=== PATIENT | female | born 1980 | race Caucasian/White ===

== ENCOUNTER 2016-07-12 15:05 | Observation (INO) | payer BC | END 2016-07-12 16:40 | disposition home or self-care (01) | LOC: SPU 15:05 | PROVIDERS: ADMIT Specialist; ATTEND Specialist | DX: O62.9 Abnormality of forces of labor, unspecified (principal); Z3A.36 36 weeks gestation of pregnancy | CPT/HCPCS: 81002; G0378 ==

== ENCOUNTER 2016-07-29 11:06 | Inpatient (IN) | payer BC ==
[~2016-07-29] VITALS: Ht 157.5 cm; Wt 72.6 kg
[2016-07-29] MEDS ORDERED: LR 1,000 ML IV SCH ×2 (11:47→16:33)
[2016-07-29] MEDS ORDERED: CEFAZOLIN 2 GM IVPB PREMIX 50 ML IV ONE ×2 (12:00→13:30)
[2016-07-29 12:14] LABS: BASOPHILS % (AUTO) 0.1 % (0.0-2.0); EOSINOPHILS # (AUTO) 0.1 K/uL (0.0-0.4); EOSINOPHILS % (AUTO) 0.8 % (0.0-4.0); HEMATOCRIT 39.7 % (36-48); HEMOGLOBIN 13.5 g/dL (12.0-16.0); LYMPHOCYTES # (AUTO) 1.3 K/uL (1.0-5.5); LYMPHOCYTES % (AUTO) 13.2 % (20.5-51.5); MEAN CORPUSCULAR HEMOGLOBIN 32 pg (27-31); MEAN CORPUSCULAR HGB CONC 34 % (32-36); MEAN CORPUSCULAR VOLUME 94 fL (79.0-98.0); MONOCYTES # (AUTO) 0.5 K/uL (0.0-1.0); MONOCYTES % (AUTO) 5.6 % (1.7-9.3); NEUTROPHILS # (AUTO) 7.7 K/uL (1.8-7.7); NEUTROPHILS % (AUTO) 80.3 % (40.0-70.0); PLATELET COUNT (AUTO) 195 K/uL (130-430); RED BLOOD CELL COUNT(AUTO) 4.23 MIL/uL (4.2-6.2); RED CELL DISTRIBUTION WIDTH 12.9 % (9.0-15.0); WHITE BLOOD COUNT (AUTO) 9.6 K/uL (4.8-10.8)
[2016-07-29 12:53] LABS: CLARITY/URINE SL HAZY (CLEAR); COLOR,URINE YELLOW (YELLOW); GLUCOSE,URINE NEGATIVE (NEGATIVE); PH,URINE 6.5 (5.0-8.0); PROTEIN URINE NEGATIVE (NEGATIVE)
[2016-07-29 12:54] LABS: BILIRUBIN,URINE NEGATIVE (NEGATIVE); BLOOD, URINE NEGATIVE (NEGATIVE); KETONES,URINE 2+ (NEGATIVE); LEUKOCYTE ESTERASE ,URINE 1+ (NEGATIVE); NITRITE, URINE NEGATIVE (NEGATIVE); UROBILINOGEN,URINE 0.2 (0.2-1.0)
[2016-07-29 13:01] LABS: BACTERIA,URINE FEW /HPF (None Seen); MUCUS,URINE None Seen /LPF (None Seen); RBC,URINE 0-3 /HPF (0-3)
[2016-07-29] MEDS ORDERED: BUPIVACAINE /PF 0.75% 10 ML VIAL INJ ONE (13:30)
[2016-07-29] MEDS ORDERED: OXYTOCIN 10 UNIT/ML VIAL IV ONE (13:30)
[2016-07-29] MEDS ORDERED: MORPHINE SULFATE 10MG/10ML PF AMP EP ONE (13:30)
[2016-07-29] MEDS ORDERED: NS IRRIG SOLN 1000 ML IR ONE (13:30)
[2016-07-29] MEDS ORDERED: ONDANSETRON HCL 4 MG/2 ML VIAL IVP ONE (13:30)
[2016-07-29] MEDS ORDERED: LR 1,000 ML IV.SOLN IV ONE (13:30)
[2016-07-29] MEDS ORDERED: MIDAZOLAM HCL 5 MG/5 ML VIAL IVP ONE (13:30)
[2016-07-29] MEDS ORDERED: HYDROmorphone 2 MG/ML VIAL IVP ONE (13:30)
[2016-07-29 15:10] VITALS: BP 106/69
[2016-07-29] MEDS ORDERED: OXYTOCIN/NORMAL SALINE 1,000 ML IV ONE ×2 (15:23→16:33)
[2016-07-29] MEDS ORDERED: OXYCODONE/ACETAMINOPHEN 5-325 TABLET PO PRN (16:45)
[2016-07-29] MEDS ORDERED: ANUSOL 1 EA SUPP.RECT (PREPARATION H) RC PRN (16:45)
[2016-07-29] MEDS ORDERED: DIPHENHYDRAMINE INJ 50 MG/ML VIAL IM PRN (16:45)
[2016-07-29] MEDS ORDERED: BISACODYL 10 MG/SUPPOSITORY RC PRN (16:45)
[2016-07-29] MEDS ORDERED: ACETAMINOPHEN 325 MG TABLET PO PRN (16:45)
[2016-07-29] MEDS ORDERED: LANOLIN 7 GM OINT. TP PRN (16:45)
[2016-07-29] MEDS ORDERED: DIPHENHYDRAMINE INJ 50 MG/ML VIAL IVP PRN (16:45)
[2016-07-29] MEDS: KETOROLAC TROMETHAMINE 30 MG VIAL IVP PRN (18:25)
[2016-07-29] MEDS: CEFAZOLIN 1 GM IVPB PREMIX 50 ML IV SCH (21:03)
[2016-07-30] MEDS: CEFAZOLIN 1 GM IVPB PREMIX 50 ML IV SCH ×2 (03:18→09:47)
[2016-07-30] MEDS: KETOROLAC TROMETHAMINE 30 MG VIAL IVP PRN (05:28)
[2016-07-30] MEDS: IBUPROFEN 600 MG TABLET PO SCH ×4 (06:10→23:36)
[2016-07-30 06:46] LABS: BASOPHILS % (AUTO) 0.2 % (0.0-2.0); EOSINOPHILS # (AUTO) 0.1 K/uL (0.0-0.4); EOSINOPHILS % (AUTO) 0.4 % (0.0-4.0); HEMATOCRIT 30.7 % (36-48); HEMOGLOBIN 10.6 g/dL (12.0-16.0); LYMPHOCYTES # (AUTO) 1.2 K/uL (1.0-5.5); LYMPHOCYTES % (AUTO) 8.8 % (20.5-51.5); MEAN CORPUSCULAR HEMOGLOBIN 32 pg (27-31); MEAN CORPUSCULAR HGB CONC 34 % (32-36); MEAN CORPUSCULAR VOLUME 93 fL (79.0-98.0); MONOCYTES % (AUTO) 7.5 % (1.7-9.3); NEUTROPHILS # (AUTO) 11.3 K/uL (1.8-7.7); NEUTROPHILS % (AUTO) 83.1 % (40.0-70.0); PLATELET COUNT (AUTO) 149 K/uL (130-430); RED BLOOD CELL COUNT(AUTO) 3.29 MIL/uL (4.2-6.2); RED CELL DISTRIBUTION WIDTH 12.6 % (9.0-15.0); WHITE BLOOD COUNT (AUTO) 13.6 K/uL (4.8-10.8)
[2016-07-30] MEDS: DOCUSATE SODIUM 100 MG CAPSULE PO PRN (10:16)
[2016-07-30] MEDS: SIMETHICONE 80 MG TAB.CHEW PO PRN ×3 (10:17→17:15)
[2016-07-30] MEDS: OXYCODONE/ACETAMINOPHEN 5-325 TABLET PO PRN ×2 (13:33→17:15)
[2016-07-31] MEDS: OXYCODONE/ACETAMINOPHEN 5-325 TABLET PO PRN ×3 (00:19→14:47)
[2016-07-31] MEDS: SENNOSIDES/DOCUSATE SODIUM 1 TAB TABLET(SENOKOT-S) PO PRN ×2 (00:20→10:41)
[2016-07-31] MEDS: DOCUSATE SODIUM 100 MG CAPSULE PO PRN ×2 (00:20→10:40)
[2016-07-31] MEDS: SIMETHICONE 80 MG TAB.CHEW PO PRN ×2 (00:20→10:41)
[2016-07-31] MEDS: IBUPROFEN 600 MG TABLET PO SCH ×2 (05:38→12:03)
== END 2016-07-31 15:25 | disposition home or self-care (01) | DRG 765 ==
LOC: SPU 11:06 → UNDOADMIN 11:06
PROVIDERS: ADMIT Specialist; ATTEND Specialist
PROC: 0UL70CZ Occlusion of Bilateral Fallopian Tubes with Extraluminal Device, Open Approach (ICD-10-PCS; 2016-07-29)
PROC: 10D00Z1 Extraction of Products of Conception, Low, Open Approach (ICD-10-PCS; principal; 2016-07-29 13:30)
DX: O36.63X0 Maternal care for excessive fetal growth, third trimester, not applicable or unspecified (principal); D62 Acute posthemorrhagic anemia; Z37.0 Single live birth; O99.824 Streptococcus B carrier state complicating childbirth; Z30.2 Encounter for sterilization; Z3A.39 39 weeks gestation of pregnancy
CPT/HCPCS: 36415; 81000-TC; 85025; 86592; 86886; 86900; 86901; 94760; J0690; J1170; J1200; J1885; J2250; J2274; J2405; J2590; J3490; J7120